=== PATIENT | male | born 1955 | race Caucasian/White ===

== ENCOUNTER 2019-05-13 21:39 | Emergency (ER) | payer MEDICARE, OTHER ==
[~2019-05-13] VITALS: Ht 188 cm; Wt 145.1 kg
[2019-05-13 21:46] VITALS: BP 90/35
--- NOTE | 2019-05-13 22:16 | PCM.EKG ---
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
[2019-05-13 22:18] LABS: BASOPHIL % 0.1 % (0.0-0.2); EOSINOPHIL # 0.1 10^3/uL (0.0-0.2); EOSINOPHIL % 0.8 % (0.0-5.0); LYMPHOCYTES # 1.8 10^3/uL (1.0-4.8); LYMPHOCYTES % 14.4 % (24.0-44.0); MEAN CORP HGB 31.1 pg (26-34); MONOCYTES % 7.9 % (5.0-12.0); NEUTROPHIL # 9.6 10^3/uL (1.8-7.7); NEUTROPHILS % 76.6 % (41.0-85.0); RED CELL DISTRIBUTION WIDTH 13.9 % (11.5-14.5)
[2019-05-13 22:40] LABS: ALANINE AMINOTRANSFERASE(ML) 8 U/L (12-78); ALKALINE PHOSPHATASE 91 U/L (50-136); ASPARTATE AMINO TRANSFERASE 17 U/L (0-35); CALCIUM 8.9 mg/dL (8.4-10.5); CARBON DIOXIDE 28.6 mmol/L (20.0-32); GLUCOSE 149 mg/dL (70-110)
[2019-05-13 22:45] VITALS: BP 104/55
[2019-05-13] MEDS ORDERED: KLOR-CON 10 PO SCH (23:30)
--- NOTE | 2019-05-13 23:40 | NUR ---
PATIENT HAD ENORMOUS BM ON BEDSIDE TOILET DURING SYNCOPE EPISODE
--- NOTE | 2019-05-13 23:40 | NUR ---
VASOVAGAL PATIENT ON BEDSIDE TOILET, CAME TO NURSES STATION, STATES PATIENT ISN'T DOING "VERY GOOD" UPON ENTERING ROOM WITH PHYSICIAN AND OTHER STAFF, PATIENT WAS NEAR SYNCOPE. PATIENT WAS TRANSFERRED TO STRETCHER, O2 APPLIED AND PATIENT BEGAN TO COME MORE ALERT.
[2019-05-13 23:45] VITALS: BP 132/71
[2019-05-13] MEDS ORDERED: ZOFRAN ONE (23:46)
[2019-05-13] MEDS ORDERED: KLOR-CON 10 PO ONE (23:53)
[2019-05-13] MEDS ORDERED: ZOFRAN IV STA (23:53)
[2019-05-14] MEDS ORDERED: SODIUM IV ONE ×3 (00:13→00:54)
[2019-05-14] MEDS ORDERED: NS 1000ML 1,000 ML STA (00:21)
--- NOTE | 2019-05-14 00:25 | NUR ---
[facility] FOR TRANSFER, DR. LEAL ACCEPTED PATIENT. CT HEAD TO BE DONE BEFORE TRANSFER
--- NOTE | 2019-05-14 00:35 | NUR ---
TO CT PATIENT TO CT VIA STRETCHER WITH RAINA DENNIS AND Carolynn NGUYỄNRN
--- NOTE | 2019-05-14 00:36 | ER.PDOC ---
General Chief Complaint: General Complaint Stated Complaint: HYPOTENSION Time seen by MD: 22:00 Source: patient, family, EMS Exam Limitations: no limitations History of Present Illness Initial Comments brought in via EMS for eval of hypotension s/p Dialysis , no CP noted Timing/Prior Episodes: single episode today Symptoms Prior to Episode: blurred vision Precipitating Factors: other (after dialysis ) Loss of Consciousness: No Loss of Consciousness Location of Injury: Head Current Symptoms: back to normal Allergies: Coded Allergies: No Known Allergies (Unverified , 05/13/19) Home Meds Unable to Obtain Active Prescriptions or Reported Meds Past Medical History Medical History: cardiac problems, diabetes, high cholesterol, hypertension, other (ESRD on HD ) Surgical History: other Family History Significant Family History: no pertinent family hx Social History Smoking: non-smoker Alcohol Use: none Drug Use: none Review of Systems Constitutional: denies no symptoms reported, denies see HPI, denies chills, denies diaphoresis, denies fever, denies malaise, denies weakness, denies other EENTM: denies no symptoms reported, denies see HPI, denies eye pain, denies blurred vision, denies tearing, denies double vision, denies ear pain, denies ear discharge, denies nose pain, denies nose congestion, denies throat pain, denies throat swelling, denies mouth pain, denies mouth swelling, denies other Respiratory: denies no symptoms reported, denies see HPI, denies cough, denies orthopnea, denies shortness of breath, denies stridor, denies wheezing, denies other Cardiovascular: denies no symptoms reported, denies see HPI, denies chest pain, denies edema, denies palpitations, denies syncope, denies other Gastrointestinal: denies no symptoms reported, denies see HPI, denies abdominal pain, denies constipation, denies diarrhea, denies nausea, denies vomiting, denies other Genitourinary: denies no symptoms reported, denies see HPI, denies discharge, denies dysuria, denies frequency, denies hematuria, denies pain, denies other Musculoskeletal: denies no symptoms reported, denies see HPI, denies back pain, denies gout, denies joint pain, denies joint swelling, denies muscle pain, denies muscle stiffness, denies neck pain, denies other Skin: no symptoms reported; denies see HPI, denies change in color, denies change in hair/nails, denies dryness, denies lesions, denies lumps, denies rash, denies other Psychiatric/Neurological: see HPI, other (dizzyness) Physical Exam General Appearance: No Apparent Distress, WD/WN, Obese HEENT: PERRL/EOMI, Normal ENT Inspection, Pale Conjunctivae (R), Pale Conjunctivae (L) Neck: Non-Tender, Full Range of Motion, Supple, Normal Inspection Cardiovascular/Respiratory: No M/R/G, Normal Peripheral Pulses, Normal Breath Sounds, No Respiratory Distress, Bradycardia Gastrointestinal: Normal Bowel Sounds, No Organomegaly, No Pulsatile Mass, Non Tender, Soft, Other (recent surgical scars noted , healing well) Extremities: Normal Range of Motion, Non-Tender, Normal Inspection, No Pedal Edema, No Calf Tenderness Psychiatric: Alert, Oriented x 3 Cranial Nerves: Normal Hearing, Normal Speech, PERRL Motor/Sensory: No Motor Deficit, No Sensory Deficit Skin: Normal Color, Warm/Dry Lymphatic: No Adenopathy Results/Orders Results/Orders Orders - KEISHA JACINTO MD Cbc With Auto Diff (05/13/19 22:05) Comprehensive Metabolic Panel (05/13/19 22:05) Troponin I (05/13/19 22:05) Ekg-Routine (05/13/19 22:05) Bedside Glucose (05/13/19 22:03) Potassium Chloride (Klor-Con 10) (05/13/19 23:30) Ondansetron Hcl (Zofran) (05/13/19 23:46) Ondansetron Hcl (Zofran) (05/13/19 23:53) Potassium Chloride (Klor-Con 10) (05/13/19 23:53) Bedside Glucose (05/13/19 23:49) 0.9 % Sodium Chloride (Ns 500ml) (05/14/19 00:13) 0.9 % Sodium Chloride (Ns 1000ml) (05/14/19 00:21) 0.9 % Sodium Chloride (Ns 500ml) (05/14/19 00:20) Ct Head Wo Contrast (05/14/19 00:26) 0.9 % Sodium Chloride (Ns 500ml) (05/14/19 00:54) 0.9 % Sodium Chloride (Ns 500ml) (05/14/19 01:06) Vital Signs Date Time Temp Pulse Resp B/P (MAP) Pulse Ox O2 Delivery O2 Flow Rate FiO2 05/14/19 00:45 98.1 78 18 94/48 (63) 94 Room Air 05/13/19 23:45 98.1 93 18 132/71 (91) 96 Room Air 05/13/19 22:45 98.1 70 18 104/55 (71) 100 Room Air 05/13/19 21:46 98.1 81 18 90/35 (53) 94 Room Air 05/13/19 21:42 98.1 18 94 Room Air 05/13/19 21:42 98.1 81 18 Administered Medications Medications (Trade) Dose Ordered Sig/Daniel Route PRN Reason Start Time Stop Time Status Last Admin Dose Admin Ondansetron HCl (Zofran) 8 mg STAT STAT IV 05/13/19 23:53 05/13/19 23:54 DC 05/13/19 23:50 8 MG Potassium Chloride (Klor-Con 10) 40 meq STAT PO 05/13/19 23:30 06/12/19 23:29 05/14/19 00:00 40 MEQ Sodium Chloride 500 ml @ 500 mls/hr Q1H STAT IV 05/14/19 01:06 05/14/19 02:05 05/14/19 01:00 500 MLS/HR Sodium Chloride 1,000 ml @ 0 mls/hr Q0M STAT IV 05/14/19 00:21 05/14/19 00:22 DC 05/14/19 00:15 1,200 MLS/HR Laboratory Tests Test 05/13/19 22:03 05/13/19 22:15 05/13/19 23:49 POC Glucose 132 (70 - 110) H 159 (70 - 110) H White Blood Count 12.5 10^3/uL (4.5-11.0) H Red Blood Count 2.89 10^6/uL (4.50-5.90) L Hemoglobin 9.0 g/dL (13.9-16.3) L Hematocrit 28.0 % (37.0-53.0) L Mean Corpuscular Volume 96.9 fL (78-100) Mean Corpuscular Hemoglobin 31.1 pg (26-34) Mean Corpuscular Hemoglobin Concent 32.1 g/dL (33-37) L Red Cell Distribution Width 13.9 % (11.5-14.5) Platelet Count 144 10^3/uL (150-400) L Mean Platelet Volume 10.6 fL (7.8-11.0) Neutrophils (%) (Auto) 76.6 % (41.0-85.0) Lymphocytes (%) (Auto) 14.4 % (24.0-44.0) L Monocytes (%) (Auto) 7.9 % (5.0-12.0) Neutrophils # (Auto) 9.6 10^3/uL (1.8-7.7) H Lymphocytes # (Auto) 1.8 10^3/uL (1.0-4.8) Monocytes # (Auto) 1.0 10^3/uL (0.3-0.8) H Absolute Immature Granulocyte (auto 0.03 10^3 u/L (0-2) Immature Granulocytes % 0.20 % (0.00-0.50) Eosinophils % 0.8 % (0.0-5.0) Basophils % 0.1 % (0.0-0.2) Basophils # 0.0 10^3/uL (0.0-0.1) Eosinophil Count 0.1 10^3/uL (0.0-0.2) Sodium Level 140 mmol/L (132-145) Potassium Level 3.0 mmol/L (3.6-5.2) L Chloride Level 101.0 mmol/L (96-109) Carbon Dioxide Level 28.6 mmol/L (20.0-32) Anion Gap 13.4 Blood Urea Nitrogen 19 mg/dL (7-18) H Creatinine 3.06 mg/dL (0.59-1.40) *H Estimated GFR () 25.0 (>/=60) BUN/Creatinine Ratio 6.0 Glucose Level 149 mg/dL (70-110) H Calcium Level 8.9 mg/dL (8.4-10.5) Total Bilirubin 0.5 mg/dL (0.2-1.0) Aspartate Amino Transferase (AST) 17 U/L (0-35) Alanine Aminotransferase (ALT) 8 U/L (12-78) L Alkaline Phosphatase 91 U/L (50-136) Troponin I < 0.02 ng/mL (0.00-0.05) Total Protein 6.0 g/dL (6.4-8.2) L Albumin 2.6 g/dL (3.4-5.0) L Globulin 3.4 Progress Progress pt has had 2 syncopal episodes in the ER, the 1st after a BM and the 2nd while lying in bed , the 2nd appeared to be associated with ?? seizure like activity , BP is low , will give fluids and re eval , pt has been accepted @ [facility] @ [address] Andi Awan , will transfer EKG/XRAY/CT/US EKG: rhythm (sinus bradycardia , with 1st degree AV block ) CT Comments: CT head negative Course Vitals & review Data Vital Sign - Last 24 Hours 05/13/19 05/13/19 05/13/19 05/13/19 21:42 21:42 21:46 22:45 Temp 98.1 98.1 98.1 98.1 Pulse 81 81 70 Resp 18 18 18 18 B/P (MAP) 90/35 (53) 104/55 (71) Pulse Ox 94 94 100 O2 Delivery Room Air Room Air Room Air 05/13/19 05/14/19 23:45 00:45 Temp 98.1 98.1 Pulse 93 78 Resp 18 18 B/P (MAP) 132/71 (91) 94/48 (63) Pulse Ox 96 94 O2 Delivery Room Air Room Air Laboratory Tests Test 05/13/19 22:03 05/13/19 22:15 05/13/19 23:49 Bedside Glucose 132 159 White Blood Count 12.5 10^3/uL Red Blood Count 2.89 10^6/uL Hemoglobin 9.0 g/dL Hematocrit 28.0 % Mean Corpuscular Volume 96.9 fL Mean Corpuscular Hemoglobin 31.1 pg Mean Corpuscular Hemoglobin Concent 32.1 g/dL Red Cell Distribution Width 13.9 % Platelet Count 144 10^3/uL Mean Platelet Volume 10.6 fL Neutrophils (%) (Auto) 76.6 % Lymphocytes (%) (Auto) 14.4 % Monocytes (%) (Auto) 7.9 % Neutrophils # (Auto) 9.6 10^3/uL Lymphocytes # (Auto) 1.8 10^3/uL Monocytes # (Auto) 1.0 10^3/uL Absolute Immature Granulocyte (auto 0.03 10^3 u/L Immature Granulocytes % 0.20 % Eosinophils % 0.8 % Basophils % 0.1 % Basophils # 0.0 10^3/uL Eosinophil Count 0.1 10^3/uL Sodium Level 140 mmol/L Potassium Level 3.0 mmol/L Chloride Level 101.0 mmol/L Carbon Dioxide Level 28.6 mmol/L Anion Gap 13.4 Blood Urea Nitrogen 19 mg/dL Creatinine 3.06 mg/dL Estimated GFR () 25.0 BUN/Creatinine Ratio 6.0 Glucose Level 149 mg/dL Calcium Level 8.9 mg/dL Total Bilirubin 0.5 mg/dL Aspartate Amino Transf (AST/SGOT) 17 U/L Alanine Aminotransferase (ALT/SGPT) 8 U/L Alkaline Phosphatase 91 U/L Troponin I < 0.02 ng/mL Total Protein 6.0 g/dL Albumin 2.6 g/dL Globulin 3.4 Current Medications Medications (Trade) Dose Ordered Sig/Daniel PRN Reason Start Time Stop Time Status Last Admin Potassium Chloride (Klor-Con 10) 40 meq STAT 05/13/19 23:30 06/12/19 23:29 05/14/19 00:00 Sodium Chloride 500 ml @ 500 mls/hr Q1H STAT 05/14/19 01:06 05/14/19 02:05 05/14/19 01:00 Sepsis Infection Criteria Pres: None O2 Sat by Pulse Oximetry: 94 Departure Time of Disposition: 00:40 Disposition: 70 DISC/XFER TO ANO TYP TH Impression: Primary Impression: Hypotension Additional Impressions: Syncopal seizure ESRD (end stage renal disease) on dialysis Condition: Stable (hypotension improved ) Referrals: PCP,UNKNOWN (PCP) PRIMARY CARE PROVIDER Scripts Unable to Obtain Active Prescriptions or Reported Meds Duration or Time Spent with Pa: 60 mins Problem Qualifiers Primary Impression: Hypotension Hypotension type: hypotension due to hypovolemia Qualified Codes: I95.89 - Other hypotension; E86.1 - Hypovolemia KEISHA JACINTO MD May 14, 2019 00:36
[2019-05-14 00:45] VITALS: BP 94/48
--- NOTE | 2019-05-14 00:58 | DIREP ---
PROCEDURE:CT HEAD OR BRAIN W/O CONTRAST COMPARISON:[facility] [place], CT HEAD BRAIN W/O CONTRAST, 03/08/2019, 10:46 AM. INDICATIONS:seizure , syncope TECHNIQUE:CT images were created without intravenous contrast. FINDINGS: VENTRICLES:The ventricles are normal in size and configuration. CEREBRUM:Normal cerebral morphology with appropriate patton white matter differentiation. CEREBELLUM:Negative. BRAINSTEM:Negative. BASAL CISTERNS:Negative. HEMORRHAGE:No MASS LESION:No ACUTE INFARCT:No SKULL:Normal, except for fluid in the left mastoid air cells. SINUSES:Normal. OTHER:None. CONCLUSION:No acute intracranial abnormality . No change. Dictated by: Colten Valladares M.D. on 05/14/2019 at 00:55 AM
[2019-05-14] MEDS ORDERED: SODIUM IV STA (01:06)
--- NOTE | 2019-05-14 01:18 | NUR ---
[facility] CALLED FOR TRANSFER TO [facility] ED
--- NOTE | 2019-05-14 01:29 | NUR ---
REPORT TO [facility] REPORT GIVEN TO DINAH HERNANDEZ RN
[2019-05-14 01:35] VITALS: BP 114/72
--- NOTE | 2019-05-14 01:45 | PCM.EKG ---
[facility] Test Date: 2019-05-14 Test Time: 01:39:02 Pat Name: PARADISE JERNIGAN Department: Patient ID: [id number] Room: Gender: M Bell Person: MUNIR : 1955 Requested By: KEISHA JACINTO Order Number: [id number] Reading MD: Travis Ahn Measurements Intervals [place] Rate: 71 P: 25 [place]: 238 QRS: -47 QRSD: 114 T: 41 QT: 450 QTc: 489 Interpretive Statements Sinus rhythm with 1st degree AV block Left anterior fascicular block Abnormal ECG No previous ECG available for comparison Electronically Signed On 05-26-2019 10:48:22 CDT by Travis Ahn Please click the below link to view image of tracing.
== END 2019-05-14 01:50 | disposition other institution (70) ==
LOC: ER 21:39 → EDBD 21:39 → ER 05-14 01:50
DX: I95.89 Other hypotension (principal); I12.0 Hypertensive chronic kidney disease with stage 5 chronic kidney disease or end stage renal disease; E11.22 Type 2 diabetes mellitus with diabetic chronic kidney disease; E78.00 Pure hypercholesterolemia, unspecified; E86.1 Hypovolemia; N18.6 End stage renal disease; R56.9 Unspecified convulsions; Z79.899 Other long term (current) drug therapy; Z99.2 Dependence on renal dialysis
CPT/HCPCS: 36415; 70450; 80053; 82948 ×2; 84484; 85025; 93005 ×2; 96361; 96374; 99285; J2405; J3490; J7040 ×3